=== PATIENT | female | born 1960 | race Caucasian/White ===

== ENCOUNTER → 2017-05-21 | Outpatient (CLI) | payer OTHER ==
[~2017-05-21] MED LIST: CALCIUM1 TA1 PO; CHILDREN'S CHEW1 CT1 PO; MOTRIN400 MG PO; OPTIMUM VITAMIN1 TAB PO
[2017-05-21 13:03] LABS: CORONAVIRUS 229E NOT DETECTED (NOT DETECTE); CORONAVIRUS HKU 1 NOT DETECTED (NOT DETECTE); CORONAVIRUS NL63 NOT DETECTED (NOT DETECTE); CORONAVIRUS OC43 NOT DETECTED (NOT DETECTE); RHINOVIRUS/ENTEROVIRUS NOT DETECTED (NOT DETECTE)
== END ==
LOC: CARL-LAB 11:28
PROVIDERS: Nurse Practitioner Family
DX: R05 Cough (principal); R09.81 Nasal congestion